=== PATIENT | female | born 1985 | race Caucasian/White ===

== ENCOUNTER → 2024-03-30 15:21 | Outpatient (REF) | payer BC, SELFPAY | LOC: WDC 15:21 | PROVIDERS: ATTENDING PHYSICIAN Obstetrics & Gynecology; FAMILY PHYSICIAN Family Medicine | DX: Z12.31 Encounter for screening mammogram for malignant neoplasm of breast (principal); Z80.3 Family history of malignant neoplasm of breast | CPT/HCPCS: 77063; 77067 ==